=== PATIENT | male | born 1970 | race Caucasian/White ===

== ENCOUNTER 2020-06-24 09:11 | Day surgery (SDC) | payer OTHER, SELFPAY ==
[2020-06-17 15:28] VITALS: BMI 26.9
--- NOTE | 2020-06-23 11:53 | P.CONAN_ITS ---
Documented by User: Gifty Pak 06/23/20 11:54 HPI - Anesthesia Eval Consult details Narrative: 50yo M for EGD: chronic GERD [facility] Past Medical History Medical History GERD (gastroesophageal reflux disease) Surgical History Surgical History History of esophagogastroduodenoscopy (EGD) Hx of hernia repair Social History Social History Smoking Status: Former smoker Smoking Quit Date: 2012 Use of substances other than those prescribed or required for medical reasons: No Advance Directives: No Advance Directives Information Provided: No Advance Directives on File: No Meds Allergies Allergy/AdvReac Type Severity Reaction Status Date / Time No Known Allergies Allergy Verified 06/23/20 11:54 Home Medications Medication Instructions Recorded Confirmed Type omeprazole 20 mg PO DAILY 06/17/20 06/24/20 History Exam Exam Date and Time: June 23, 2020 1153 Height,Weight and Vital Signs: Height 6 ft 2 in Weight 95.254 kg Assessment and Plan Assessment Anesthesia Assessment: Chart Reviewed Documented by User: Tee Ramachandran 06/24/20 10:16 [facility] Past Medical History Medical History GERD (gastroesophageal reflux disease) Surgical History Surgical History History of esophagogastroduodenoscopy (EGD) Hx of hernia repair Social History Social History Smoking Status: Former smoker Smoking Quit Date: 2012 Use of substances other than those prescribed or required for medical reasons: No Advance Directives: No Advance Directives Information Provided: No Advance Directives on File: No Meds Allergies Allergy/AdvReac Type Severity Reaction Status Date / Time No Known Allergies Allergy Verified 06/23/20 11:54 Home Medications Medication Instructions Recorded Confirmed Type omeprazole 20 mg PO DAILY 06/17/20 06/24/20 History Exam Airway Mallampati Class: II TM Dist: >3cm Neck ROM: Full Heart: RRR Assessment and Plan Assessment Anesthesia Assessment: Anesthesia Plan Discussed Final Anesthetic Review NPO: Yes ASA Class: I Final Preanesthetic Review: Consent Obtained/Reviewed Anesthetic Plan Anesthetic Plan: MAC:
[2020-06-24 09:41] VITALS: BP 141/93; PULSE 86; RESP 18; TEMP 36.9; O2SAT 99
[2020-06-24] MEDS: Lactated Ringers 1,000 ML 100 ML IVCONT (09:53)
--- NOTE | 2020-06-24 10:42 | MHC.SHP ---
Pre-Procedural Eval Section B Chief Complaint: Chronic Gerd Relevant Family History (Specify if Yes): No Relevant Social History: None Present Medications: see Short Stay Collaborative assessment Medical History: Significant History (GERD) History of Previous Operations: No relevant previous surgery Allergies: Allergies Allergy/AdvReac Type Severity Reaction Status Date / Time No Known Allergies Allergy Verified 06/23/20 11:54 Review of Systems Sugical H&P ROS: Negative: Constitution, Cardiovascular, Respiratory, Neurological, Psychiatric, Hem-Onc, Allergic/Immunologic, Gastrointestinal, Genitourinary, Musculoskeletal, Integumentary, Endocrine and Eyes/Ears/Nose/Throat Exam Surgical H&P Exam: Normal: HEENT, Normal: Heart, Normal: Lungs, Normal: Extremities, Normal: Abdomen, Normal: Skin and Normal: Neurological Plan Diagnosis/Plan: Unchanged Patient has been examined and remains a candidate for the planned procedure
[2020-06-24 11:19] VITALS: BP 114/76; PULSE 87; RESP 18; TEMP 36.2; O2SAT 94
--- NOTE | 2020-06-24 11:19 | PM.OP ---
Brief Operative Note Date of procedure: 06/24/20 Pre-op diagnosis: GERD Post-op diagnosis: same Procedure: Procedure Description: EGD FLEXIBLE TRANSORAL UPPER GASTROINTESTINAL ENDOSCOPY UPPER ENDOSCOPY Consent: Indications for the procedure and potential complications of bleeding, perforation, reaction to medications and missed diagnosis were discussed with the patient and informed consent was obtained. Instrument: Olympus GIF H 190 J mid size upper endoscope Monitoring: Vital signs and clinical assessment, continuous EKG monitoring, Pulse oximetry, Carbon Dioxide monitoring and blood pressure monitoring were done throughout the procedure. Procedure: The patient was placed in the left lateral decubitis position and pre-procedure medications were administered and a bite block was placed. The endoscope was inserted into the mouth and advanced under direct vision to the third part of duodenum. A careful inspection was made as the upper endoscope was withdrawn including a retroflexed examination of the proximal stomach; Findings and interventions are described below. Findings: Larynx:normal Esophagus: GE junction at 40 cm, diaphragm hiatus at 40 cm, irregular Z line with few islands of salmon pink tissue, bx taken to r/o barretts, proximal esophagus at 20 cm with inlet patch looked slightly atypical and raised so bx taken. LES also noted to be lax. Stomach: Patchy gastric erythema with nodularity. Biopsies were obtained. Grade 2 flap valve on retroflexed examination of the cardia. Duodenum: Normal bulb and descending duodenum, bx taken Intervention: Biopsies as noted above Impression/Findings: gastritis possible short segment barretts inlet patch, esophagus PLAN: cont PPI meantime, might change formulation or dosing depending on results if H pylori pos then treat consider referral for Linx surgery Surgeon: Chico Miller MD Anesthesia: MAC Condition: stable Disposition: PACU
[2020-06-24 11:34] VITALS: BP 113/83; PULSE 84; RESP 16; O2SAT 14
[2020-06-24 11:49] VITALS: BP 129/92; PULSE 77; RESP 18; TEMP 36.1; O2SAT 97
[2020-06-24 12:05] VITALS: BP 134/88; PULSE 78; RESP 18; TEMP 36.1; O2SAT 97
--- NOTE | 2020-06-24 12:17 | HO.POSTANES ---
Post Anesthesia Evaluation Post Anesthesia Evaluation Vital Signs: Vital Signs Temp Pulse Resp BP Pulse Ox 06/24/20 12:05 96.9 F 78 18 134/88 97 06/24/20 11:49 96.9 F 77 18 129/92 H 97 06/24/20 11:34 84 16 113/83 14 L 06/24/20 11:19 97.2 F 87 18 114/76 94 06/24/20 09:41 98.5 F 86 18 141/93 H 99 Anesthesia: Monitored Mental Status: Awake Pain Control: Satisfactory Nausea/Vomiting: None Hydration: Adequate Anesthesia-Related Issues: No Anes. Related Issues
== END 2020-06-24 12:25 | disposition home or self-care (01) ==
PROVIDERS: Visit Provider Internal Medicine Gastroenterology
PROC: 0DJ08ZZ Inspection of Upper Intestinal Tract, Via Natural or Artificial Opening Endoscopic (ICD-10-PCS; CPT 43235; principal; 2020-06-24 11:00)
DX: K21.9 Gastro-esophageal reflux disease without esophagitis (principal); K22.70 Barrett's esophagus without dysplasia; K29.50 Unspecified chronic gastritis without bleeding; B96.81 Helicobacter pylori [H. pylori] as the cause of diseases classified elsewhere; K44.9 Diaphragmatic hernia without obstruction or gangrene; Q39.8 Other congenital malformations of esophagus; Z79.899 Other long term (current) drug therapy; Z87.891 Personal history of nicotine dependence
CPT/HCPCS: 43239; 88305; 88342

== ENCOUNTER 2020-08-09 09:24 | Outpatient (REF) | payer OTHER, SELFPAY ==
[2020-08-11 12:12] LABS: H Pylori Breath Test DETECTED (NOT DETECTED)
== END 2020-08-09 09:25 | disposition home or self-care (01) ==
LOC: HO.LAB 09:24
PROVIDERS: PCP Internal Medicine; Visit Provider Internal Medicine Gastroenterology
DX: K21.9 Gastro-esophageal reflux disease without esophagitis (principal); Z11.0 Encounter for screening for intestinal infectious diseases
CPT/HCPCS: 83013; 99211

== ENCOUNTER 2021-05-31 10:02 | Outpatient (REF) | payer OTHER, SELFPAY ==
[2021-06-01 13:11] LABS: H Pylori Breath Test Negative (Negative)
== END 2021-05-31 10:03 | disposition home or self-care (01) ==
LOC: CF 10:02
PROVIDERS: Visit Provider Internal Medicine Gastroenterology
DX: Z87.19 Personal history of other diseases of the digestive system (principal)
CPT/HCPCS: 36415; 83013

== ENCOUNTER 2022-09-19 07:23 | Day surgery (SDC) | payer OTHER, SELFPAY ==
[2022-09-15 10:58] VITALS: BMI 26.9
--- NOTE | 2022-09-18 13:34 | HO.ANESPROP2 ---
HPI - Anesthesia Eval Consult details Narrative: 52yo M for Colonoscopy PMFSH Active Problems Active Problems: All Active Problems (Updated 08/09/20 @ 10:07 by Luz Mcguire RN) GERD (gastroesophageal reflux disease) (Acute) Past Medical History Medical History (Updated 09/19/22 @ 08:02 by Luz Lira, GUILLERMINA) Elevated cholesterol GERD (gastroesophageal reflux disease) HTN (hypertension) Surgical History Surgical History History of esophagogastroduodenoscopy (EGD) Hx of hernia repair Social History Social History (Updated 09/15/22 @ 10:57 by Bianka Mcconnell RN) Patient Tobacco Use Status: Former Tobacco user Tobacco use type: Cigarette Use of substances other than those prescribed or required for medical reasons: No Are you DNR?: No Advance Directives: No Advance Directives Information Provided: Yes Meds Allergies Allergy/AdvReac Type Severity Reaction Status Date / Time No Known Allergies Allergy Verified 09/19/22 07:37 Home Medications Medication Instructions Recorded Confirmed Last Taken Type omeprazole 20 mg capsule,delayed 20 mg PO DAILY 06/17/20 09/19/22 06/24/20 History release y amlodipine 5 mg tablet 1 tab PO DAILY 09/19/22 09/19/22 Unknown History atorvastatin 10 mg tablet 1 tab PO DAILY 09/19/22 09/19/22 Unknown History Exam Exam Date and Time: September 18, 2022 1334 Height,Weight and Vital Signs: Height 6 ft 2 in Weight 95.254 kg Assessment and Plan Assessment Anesthesia Assessment: Chart Reviewed
--- NOTE | 2022-09-19 06:54 | MHC.SHP ---
Pre-Procedural Eval Section A Date of Service: 09/19/22 Section B Chief Complaint: screening Relevant Family History (Specify if Yes): No Relevant Social History: None Present Medications: see Short Stay Collaborative assessment Medical History: Significant History (gerd) History of Previous Operations: Relevant previous surgery/procedure and date(s) (History of esophagogastroduodenoscopy (EGD) Hx of hernia repair) Allergies: Allergies Allergy/AdvReac Type Severity Reaction Status Date / Time No Known Allergies Allergy Verified 06/23/20 11:54 Review of Systems Sugical H&P ROS: Negative: Constitution, Cardiovascular, Respiratory, Neurological, Psychiatric, Hem-Onc, Allergic/Immunologic, Gastrointestinal, Genitourinary, Musculoskeletal, Integumentary, Endocrine and Eyes/Ears/Nose/Throat Exam Surgical H&P Exam: Normal: HEENT, Normal: Heart, Normal: Lungs, Normal: Extremities, Normal: Abdomen, Normal: Skin and Normal: Neurological Plan Diagnosis/Plan: Unchanged I have reviewed the history and physical and performed a pertinent physical examination on my patient. No changes have occurred unless specified. Time Spent With Patient Time: Total time managing care of this patient today ____ minutes.
[2022-09-19 07:59] VITALS: BP 134/95; PULSE 94; RESP 15; TEMP 36.9; O2SAT 95
[2022-09-19] MEDS: Lactated Ringers 1,000 ML 100 ML IVCONT (08:07)
--- NOTE | 2022-09-19 08:58 | P.OP_ITS ---
Operative Note Operative Note Date of Service: 09/19/22 Narrative: Operative Information Procedure Description: Colonoscopy Indication: screening Anesthesia: MAC COLONOSCOPY Instrument: Olympus variable stiffness pediatric scope 190L Colonoscopy Monitoring: Vital signs and clinical assessment, continuous EKG monitoring, Pulse oximetry, Carbon Dioxide monitoring and blood pressure monitoring were done throughout the procedure. Colon withdrawal time was 10 minutes. Procedure: The patient was placed in the left lateral decubitis position and pre-procedure medications were administered. After a digital rectal examination of the ano-rectum, the video colonoscope was inserted into the rectum and advanced through the colon to the cecum/TI. The colonoscope was slowly withdrawn in a retrograde panoramic fashion and the colon mucosa was carefully examined including a retroflexed view of the rectum. Findings and interventions are described below. Procedure Difficulty: easy Findings: Terminal Ileum-normal Cecum:normal Ascending Colon: normal Transverse Colon -normal Descending Colon:normal Sigmoid Colon: 8 mm sessile polyp removed with cold snare Rectum: Retroflexion with small internal hemorrhoids, grade I Anorectum - normal Colon preparation: [place] [facility] Bowel Preparation Scale Right colon; 2 Transverse colon: 3 Left colon; 3 (0 = Unprepared colon segment with mucosa not seen due to solid stool that cannot be cleared. 1 = Portion of mucosa of the colon segment seen, but other areas of the colon segment not well seen due to staining, residual stool and/or opaque liquid. 2 = Minor amount of residual staining, small fragments of stool and/or opaque li quid, but mucosa of colon segment seen well. 3 = Entire mucosa of colon segment seen well with no residual staining, small fragments of stool or opaque liquid) Impression and Post Procedure Diagnosis: polyp internal hemorrhoids Plan: High fiber diet leaflet Avoid straining at stool, epsom salts and sitz bath, anusol supps or cream Repeat Colonoscopy in 5-7 years if adenomatous polyp, 10 yrs if hyperplastic or earlier if clinically indicated Above findings were reviewed with the patient and relevant handouts were provided if indicated.
[2022-09-19 09:44] VITALS: BP 126/79; PULSE 106; RESP 17; TEMP 36.6; O2SAT 98
[2022-09-19 10:03] VITALS: BP 128/95; PULSE 103; RESP 18; TEMP 36.6; O2SAT 96
== END 2022-09-19 10:29 ==
LOC: HO.SSS 07:23
PROVIDERS: Visit Provider Internal Medicine Gastroenterology
PROC: 0DJD8ZZ Inspection of Lower Intestinal Tract, Via Natural or Artificial Opening Endoscopic (ICD-10-PCS; CPT 45378; principal; 2022-09-19 08:30)
DX: Z12.11 Encounter for screening for malignant neoplasm of colon (principal); K63.5 Polyp of colon; K64.0 First degree hemorrhoids; K21.9 Gastro-esophageal reflux disease without esophagitis; Z79.899 Other long term (current) drug therapy; Z87.891 Personal history of nicotine dependence
CPT/HCPCS: 45385; 88305; J2250